=== PATIENT | female | born 1945 | race Asian ===

== ENCOUNTER 2017-03-11 06:30 | Inpatient (IN) | payer MEDICARE ==
[~2017-03-11] VITALS: Ht 160 cm; Wt 68.0 kg
[~2017-03-11 06:30] MED LIST: GLIP10TA3 PO; HALO1TAB21 PO; LISI30TA6 PO; METF850T PO; PRAV80TA PO
--- NOTE | 2017-03-11 06:30 | NUR ---
PT. ESPINO TO ER BED 1
[2017-03-11 06:35] VITALS: BP 173/70
--- NOTE | 2017-03-11 06:44 | NUR ---
71 Y/O F BIBA FROM HOME W/C/O GENERALIZED WAEKNESS X 1 DAY. HX. DM, HTN. BS 389 ON SCENE. BP ELEVATED, DENIES ANY CHEST PAIN. ER MD LAZARO BRASHER.
--- NOTE | 2017-03-11 07:17 | NUR ---
Pt report given to KRISTINA WORKMAN. Transfer of care at this time.
--- NOTE | 2017-03-11 07:18 | NUR ---
RECEIVED REPORT FROM KRISTINA TERRELL. Patient appears to be resting comfortably in bed. BP 175/76 ; DENIES HEADACHE AT THIS TIME. AT BEDSIDE. WILL CONTINUE TO MONITOR.
--- NOTE | 2017-03-11 07:32 | NUR ---
Patient being evaluated by DR WILKERSON at bedside.
[2017-03-11] MEDS ORDERED: NACL 0.9% 1,000 ML IV SCH (07:35)
--- NOTE | 2017-03-11 07:42 | NUR ---
LAB AT BEDSIDE
--- NOTE | 2017-03-11 08:00 | NUR ---
Charles ball in ED - 03/11/17 at 0928 by MED1 STRAIT CATH URINE 800 CC YELLOW.
--- NOTE | 2017-03-11 08:00 | NUR ---
STRAIT CATH URINE 800 CC YELLOW.
[2017-03-11 08:04] LABS: BASOPHILS # (AUTO) 0.1 K/uL (0.00-0.22); BASOPHILS % (AUTO) 0.6 % (0.0-2.0); EOSINOPHILS % (AUTO) 0.2 % (0.0-4.0); HEMATOCRIT 33.6 % (36-48); LYMPHOCYTES # (AUTO) 0.4 K/uL (2.5-16.5); MEAN CORPUSCULAR HEMOGLOBIN 29 pg (27-31); MEAN CORPUSCULAR HGB CONC 33 g/dL (33-37); MEAN CORPUSCULAR VOLUME 89 fL (80-94); MONOCYTES # (AUTO) 0.2 K/uL (0.8-1.0); MONOCYTES % (AUTO) 2.2 % (1.7-9.3); NEUTROPHILS # (AUTO) 7.7 K/uL (1.8-7.7); PLATELET COUNT (AUTO) 263 K/uL (140-450); RED BLOOD CELL COUNT(AUTO) 3.78 MIL/uL (4.20-5.40); RED CELL DISTRIBUTION WIDTH 14.6 % (11.6-13.7)
[2017-03-11 08:17] LABS: WHITE BLOOD COUNT (AUTO) 8.4 K/uL (4.8-10.8)
[2017-03-11 08:20] LABS: PROTHROMBIN TIME 10.9 secs (10.8-13.4)
[2017-03-11 08:59] LABS: ANION GAP 12.5 (8-16); CREATININE 1.1 mg/dL (0.6-1.3); POTASSIUM 3.5 mmol/L (3.5-5.1); TOTAL BILIRUBIN 0.4 mg/dL (0.0-1.0)
[2017-03-11 10:22] LABS: APPEARANCE,URINE CLEAR (CLEAR); BILIRUBIN,URINE NEGATIVE (NEGATIVE); BLOOD, URINE 2+ (NEGATIVE); COLOR,URINE YELLOW (YELLOW); LEUKOCYTE ESTERASE ,URINE NEGATIVE (NEGATIVE); NITRITE, URINE NEGATIVE (NEGATIVE); UGLUCOSE 3+ (NEGATIVE)
[2017-03-11 10:28] LABS: RBC,URINE 11-20 (MOD) /HPF (0-5); WBC,URINE 0-5 (RARE) /HPF (0-5)
--- NOTE | 2017-03-11 11:17 | NUR ---
Patient appears to be resting comfortably in bed. BP 154/69, PULSE OX 96%, Respirations even and unlabored.WILL CONTINUE TO MONITOR.
--- NOTE | 2017-03-11 11:17 | NUR ---
Charles ball in EDM - 03/11/17 at 1119 by MED1 Patient appears to be resting comfortably in bed. Vital Signs within normal limits. Respirations even and unlabored.WILL CONTINUE TO MONITOR.
[2017-03-11] MEDS: NACL 0.9% 1,000 ML IV SCH ×2 (11:18→21:18)
[2017-03-11] MEDS ORDERED: HYDROcodone/APAP 7.5/325 MG 1 TAB PO PRN (11:20)
[2017-03-11] MEDS ORDERED: DOCUSATE SODIUM 100 MG GELCAP PO PRN (11:20)
--- NOTE | 2017-03-11 11:27 | NUR ---
PT TAKEN TO CT VIA GUJESSICA ,ACCOMPANIED BY AD TRAFFICKER.
--- NOTE | 2017-03-11 11:45 | NUR ---
PT BACK FROM CT VIA AISHWARYA ,ACCOMPANIED BY DERRICK BOAT CAPTAIN.
--- NOTE | 2017-03-11 11:54 | NUR ---
PT ARRIVED ON THE UNIT WITH 2 ER NURSES. RECEIVED REPORT AT BEDSIDE. PT IS ALERT AND ORIENTED. SLIGHTLY DELAYED IN RESPONSE. INTRODUCED MYSELF AND UPDATED THE BOARD. PT'S SPOUSE AND 2 DAUGHTERS AT BEDSIDE. SKIN INTACT. NO SIGNS OF SOB OR RESPIRATORY DISTRESS. OCCASIONAL DRY COUGH, NO PHLEGM NOTED. IV ON L FA 20G. NO EDEMA NOTED. V/S WITHIN NORMAL LIMITS. BP HIGH AND FEBRILE 101.8F. NO COMPLAINTS OF PAIN. HUNGRY. AWAITING LUNCH TRAY-CCHO. PER DAUGHTER, PT HAD UNSTEADY GAIT YESTERDAY BUT TODAY, UNABLE TO AMBULATE. WILL AWAIT MD ASSESSMENT AND ORDERS.
[2017-03-11 12:00] VITALS: BP 182/75
--- NOTE | 2017-03-11 12:00 | NUR ---
MRSA SCREENING DONE BY NEERU. WILL SEND TO LAB.
--- NOTE | 2017-03-11 12:01 | NUR ---
Patient will be admitted to care of DR RAMOS. Admited to TELE. Will go to room 124B. Belongings list completed. Report to KRISTINA FANG.
--- NOTE | 2017-03-11 12:49 | NUR ---
ORDERED IVF. ADMINISTERED AND ALSO GAVE TYLENOL FOR FEVER. WILL CONTINUE TO MONITOR PT.
[2017-03-11 13:00] LABS: CHOL/HDL RATIO 2.8 (1-4.5); FREE T4 (FREE THYROXINE) 1.22 ng/dL (0.76-1.46); MAGNESIUM 1.4 mg/dL (1.8-2.4); PHOSPHORUS 2.9 mg/dL (2.5-4.9); THYROID STIMULATING HORMONE 0.76 uIU/mL (0.34-3.74)
[2017-03-11] MEDS: ACETAMINOPHEN 325 MG TAB PO PRN ×2 (13:01→17:39)
[2017-03-11] MEDS ORDERED: ASPI81CT89 PO (14:07)
[2017-03-11] MEDS ORDERED: RISP0.5T3 PO (14:07)
[2017-03-11] MEDS ORDERED: METO100T14 PO (14:07)
[2017-03-11] MEDS ORDERED: LOSA50TA39 PO (14:07)
[2017-03-11] MEDS ORDERED: DEXTROSE 50% 50 ML SYR IVP PRN (14:30)
--- NOTE | 2017-03-11 15:17 | NUR ---
PATIENT IS SLEEPING COMFORTABLY. NO SIGNS OF DISTRESS NOTED. SAFETY PRECAUTIONS IN PLACE. CALL LIGHT WITHIN REACH. WILL CONTINUE TO MONITOR PATIENT.
[2017-03-11 16:00] VITALS: BP 155/75
[2017-03-11] MEDS: metFORMIN 850 MG TAB PO SCH (16:52)
[2017-03-11] MEDS: glipiZIDE 10 MG TAB PO SCH (16:52)
[2017-03-11] MEDS: BLOOD GLUCOSE MONITORING 1 DEV DEV FS SCH ×2 (16:54→20:57)
--- NOTE | 2017-03-11 17:13 | NUR ---
PT V/S IS IMPROVING. BP SLOWLY COMING DOWN. BS ON A DOWN TREND. O2 SAT IN LOW 90'S. O2 2L VIA NC ADMINISTERED. ELEVATED THE HEAD. WILL CONTINUE TO MONITOR PT.
--- NOTE | 2017-03-11 17:28 | NUR ---
PT VOMITED. WILL CLEAN PT UP AND ADMINISTER ZOFRAN. WILL CONTINUE TO MONITOR PT.
[2017-03-11] MEDS: ONDANSETRON 4 MG/2 ML VIAL IM/IVP PRN (17:39)
[2017-03-11] MEDS: INSULIN LISPRO SLIDING SCALE 100 UNITS/ML VIAL SUBQ PRN (17:43)
--- NOTE | 2017-03-11 17:51 | NUR ---
ADMINISTERED ZOFRAN FOR NAUSEA AND TYLENOL FOR FEVER. PT TOLERATED WELL. COOLING MEASURES IMPLEMENTED. FAMILY IS HERE. WILL CONTINUE TO MONITOR PT.
[2017-03-11] MEDS ORDERED: MAG SULF 2000 MG/WATER PREMIX 100 ML IV ONE (18:15)
--- NOTE | 2017-03-11 19:00 | NUR ---
RADIOLOGY HERE FOR US OF KIDNEYS, ABD, AND CAROTID.
--- NOTE | 2017-03-11 19:10 | NUR ---
ENDORSED PT TO THE COLLOID MILL OPERATOR NURSE AT BEDSIDE FOR CONTINUITY OF CARE. PT IS IN STABLE CONDITION.
--- NOTE | 2017-03-11 19:20 | NUR ---
RECEIVED REPORT FROM AM NURSE. PT RESTING IN BED, AWAKE AND ALERT, DELAYED SPEECH, ABLE TO VERBALIZE NEEDS, PT REPORTS GENERALIZED WEAKNESS, BEDREST. MANAGER DRIVE IN PLACE. PT DENIES CHEST PAIN, SOB OR S/S OF ACUTE DISTRESS. SPO2 98% ON O2 2L NC, RR 20 EVEN AND UNLABORED. TEMP 99.6, COOLING MEASURES MAINTAINED. IV ACCESS ASYMPTOMATIC, PATENT AND INTACT. IVF INFUSING WELL. DISCUSSED AND REVIEWED PLAN OF CARE WITH PT. PT VERBALIZED UNDERSTANDING. ALL NEEDS MET. SAFETY MEASURES ENSURED. CALL LIGHT WITHIN REACH. WILL CONTINUE TO MONITOR.
[2017-03-11 20:00] VITALS: BP 148/68
[2017-03-11] MEDS: SIMVASTATIN 40 MG TAB PO SCH (20:56)
[2017-03-11] MEDS: risperiDONE 1 MG TAB PO SCH (20:56)
--- NOTE | 2017-03-11 20:59 | NUR ---
BLOOD GLUCOSE 146, NO INSULIN COVERAGE NEEDED, EVENING SNACK PROVIDED. ADMINISTERED DUE MEDS WITH EDUCATION. PT VERBALIZED UNDERSTANDING, TOLERATED MEDS WELL. PT HAD BM, ASSISTED PT TO BEDPAN, PT CLEANED BY LAST SAWYER, PT ABLE TO TOLERATE WELL. ALL NEEDS MET. IVF INFUSING WELL. SAFETY MEASURES ENSURED. CALL LIGHT WITHIN REACH. WILL CONTINUE TO MONITOR.
[2017-03-11] MEDS ORDERED: LACTULOSE 20 GM/30 ML UDC PO SCH (21:30)
--- NOTE | 2017-03-11 23:54 | NUR ---
PT SLEEPING COMFORTABLY, AROUSABLE TO NAME, NO S/S OF ACUTE DISTRESS. ALL NEEDS MET. SAFETY MEASURES ENSURED. CALL LIGHT WITHIN REACH. WILL CONTINUE TO MONITOR.
[2017-03-12] VITALS (7 sets, daily range): BP systolic 136–186; BP diastolic 66–85
--- NOTE | 2017-03-12 | NUR ---
PT HAD LARGE LOOSE BM, PT CLEANED, TURNED AND REPOSITIONED WITH CNAs. PT TOLERATED WELL. ALL NEEDS MET. IVF INFUSING WELL. SAFETY MEASURES ENSURED. CALL LIGHT WITHIN REACH. WILL CONTINUE TO MONITOR.
[2017-03-12] MEDS: NACL 0.9% 1,000 ML IV SCH ×3 (02:04→14:14)
--- NOTE | 2017-03-12 02:06 | NUR ---
PT HAD ANOTHER LARGE LOOSE BM, PT CLEANED, TURNED AND REPOSITIONED WITH CNAs. PT TOLERATED WELL. ALL NEEDS MET. IVF INFUSING WELL. SAFETY MEASURES ENSURED. CALL LIGHT WITHIN REACH. WILL CONTINUE TO MONITOR.
[2017-03-12] MEDS: hydrALAZINE 20 MG/ML VIAL IVP PRN (04:14)
[2017-03-12] MEDS: ACETAMINOPHEN 325 MG TAB PO PRN ×2 (04:14→16:53)
--- NOTE | 2017-03-12 04:15 | NUR ---
CALLED DR WEINSTEIN, MADE AWARE OF ELEVATED BP AT THIS TIME, 186/85, 167/87 AND 163/97; ORDERS RECEIVED, WILL CARRY OUT. ADMINISTERED HYDRALAZINE 5MG IVP PRN ORDERED. TEMP 100.4, ADMINISTERED TYLENOL PO PRN ORDERED. PT HAD MODERATE LOOSE BM, PT CLEANED, TURNED AND REPOSITIONED, OFFLOADED PRESSURE AREAS. PT TOLERATED WELL. ALL NEEDS MET. IVF INFUSING WELL. SAFETY MEASURES ENSURED. CALL LIGHT WITHIN REACH. WILL CONTINUE TO MONITOR.
[2017-03-12 06:16] LABS: T4 (THYROXINE) 7.1 ug/dL (4.5-12.0)
[2017-03-12] MEDS: BLOOD GLUCOSE MONITORING 1 DEV DEV FS SCH ×4 (06:30→21:00)
[2017-03-12] MEDS: glipiZIDE 10 MG TAB PO SCH ×2 (06:30→16:40)
[2017-03-12] MEDS: INSULIN LISPRO SLIDING SCALE 100 UNITS/ML VIAL SUBQ PRN ×2 (06:31→12:37)
--- NOTE | 2017-03-12 07:15 | NUR ---
ENDORSED PLAN OF CARE TO AM NURSE. CONDITION STABLE
--- NOTE | 2017-03-12 07:16 | NUR ---
RECEIVED REPORT FROM TERMITE CONTROL TECHNICIAN RN AT BEDSIDE FOR CONTINUITY OF CARE. PT IS ALERT AND ORIENTED. SLIGHTLY DELAYED IN RESPONSE. SKIN INTACT. NO SIGNS OF SOB OR RESPIRATORY DISTRESS. OCCASIONAL DRY COUGH, NO PHLEGM NOTED. IV ON L FA 20G WITH NS AT 100 ML/HR. NO COMPLAINTS OF PAIN. SAFETY PRECAUTIONS IN PLACE. BED ON LOWEST SETTING, CALL LIGHT WITHIN REACH. WILL CONTINUE TO MONITOR PATIENT.
[2017-03-12 08:04] LABS: HEMATOCRIT 33.3 % (36-48); HEMOGLOBIN 11.3 g/dL (12.0-16.0); MEAN CORPUSCULAR HEMOGLOBIN 31 pg (27-31); MEAN CORPUSCULAR HGB CONC 34 g/dL (33-37); MEAN CORPUSCULAR VOLUME 90 fL (80-94); PLATELET COUNT (AUTO) 231 K/uL (140-450); RED BLOOD CELL COUNT(AUTO) 3.69 MIL/uL (4.20-5.40); RED CELL DISTRIBUTION WIDTH 15.2 % (11.6-13.7); WHITE BLOOD COUNT (AUTO) 7.4 K/uL (4.8-10.8)
[2017-03-12 08:29] LABS: ANION GAP 13.1 (8-16); CREATININE 0.8 mg/dL (0.6-1.3); POTASSIUM 3.1 mmol/L (3.5-5.1)
[2017-03-12] MEDS ORDERED: PRAVASTATIN SODIUM 80 MG PO SCH (09:00)
[2017-03-12] MEDS: metFORMIN 850 MG TAB PO SCH ×3 (09:25→16:39)
[2017-03-12] MEDS: LOSARTAN 50 MG TAB PO SCH (09:32)
[2017-03-12] MEDS: LISINOPRIL 10 MG TAB PO SCH (09:32)
[2017-03-12] MEDS: ASPIRIN 81 MG TAB.CHEW PO SCH (09:32)
[2017-03-12] MEDS: METOPROLOL SUCCINATE 50 MG TABER PO SCH (09:32)
--- NOTE | 2017-03-12 10:04 | NUR ---
PATIENT HAS BEEN SCREENED AND CATEGORIZED HIGH NUTRITION RISK. PATIENT WILL BE SEEN WITHIN 1-2 DAYS OF ADMISSION. 03/11/17-03/12/[address]
[2017-03-12 10:22] LABS: LYMPHOCYTES % (MANUAL) 10 % (20-46); MONOCYTES % (MANUAL) 7 % (5-12)
--- NOTE | 2017-03-12 14:51 | NUR ---
03/12/17 RD INITIAL ASSESSMENT COMPLETED PLEASE REFER TO NUTRITION ASSESSMENT UNDER CARE ACTIVITY FOR ESTIMATED NUTRITIONAL NEEDS. 1.CONTINUE CURRENT DIET TOLERATED, PT TO CONSUME >75% EST. KCAL & PRO WITHIN 3-5 DAYS 2.RD TO FOLLOW-UP IN 3-5 DAYS, MODERATE RISK SYLVIA GONZALES, RD
--- NOTE | 2017-03-12 15:04 | NUR ---
PATIENT SITTING UP IN BED, WATCHING TV. NO SIGNS OF DISTRESS NOTED. SAFETY PRECAUTIONS IN PLACE. WILL CONTINUE TO MONITOR PATIENT.
--- NOTE | 2017-03-12 15:29 | NUR ---
CM NOTE INITIAL REVIEW FAXED TO [facility] / FAX# [phone], ATTN: GEN #[phone]
--- NOTE | 2017-03-12 16:43 | NUR ---
PATIENT'S TEMPERATURE 102.5. TYLENOL GIVEN PRN. NO SIGNS OF DISTRESS NOTED. FAMILY AT BEDSIDE. SAFETY PRECAUTIONS IN PLACE. WILL CONTINUE TO MONITOR PATIENT.
--- NOTE | 2017-03-12 17:30 | NUR ---
PATIENT'S TEMPERATURE 100.2. NO SIGNS OF DISTRESS NOTED. SAFETY PRECAUTIONS IN PLACE. WILL CONTINUE TO MONITOR PATIENT.
--- NOTE | 2017-03-12 18:05 | NUR ---
PATIENT'S BP 139/51 T 99.5. PATIENT SITTING UP IN BED EATING DINNER. SAFETY PRECAUTIONS IN PLACE. WILL CONTINUE TO MONITOR PATIENT.
[2017-03-12] MEDS: ONDANSETRON 4 MG/2 ML VIAL IM/IVP PRN (18:16)
--- NOTE | 2017-03-12 18:16 | NUR ---
PATIENT VOMITTED. ZOFRAN PRN IVP ADMINISTERED ORDERED. LINENS AND BED GOWN CHANGED. PATIENT DENIES PAIN. SAFETY PRECAUTIONS IN PLACE. WILL CONTINUE TO MONITOR PATIENT.
--- NOTE | 2017-03-12 19:30 | NUR ---
RECEIVED PT FROM ANNALISA RN PT IS AAOX3 DELAYED SPEECH ON TELE SR, IV ON LEFT ARM INFUSING WELL AT THISTIME MG RIDDER IS INFUSING PT REPOSITIONED INITIAL ASSESSMENT DONE
--- NOTE | 2017-03-12 19:30 | NUR ---
REPORT GIVEN TO MATERIALS INSPECTOR NURSE AT BEDSIDE FOR CONTINUITY OF CARE. PATIENT IN STABLE CONDITION.
[2017-03-12] MEDS ORDERED: POTASSIUM CHLORIDE 20 MEQ, LIDOCAINE 1% 25 MG in NACL 0.9% 250 ML IV SCH (20:00)
--- NOTE | 2017-03-12 20:00 | NUR ---
PT LINEN CHANGED GREENISH LIQUID STOOL
[2017-03-12] MEDS: risperiDONE 1 MG TAB PO SCH (21:00)
--- NOTE | 2017-03-12 21:30 | NUR ---
BLOOD SUGAR TEST 130 REPOSITIONED Q2HNOT DISTRESS NOTED
--- NOTE | 2017-03-12 22:00 | NUR ---
PT HAS BEEN CLEANING FOR LIQUID STOOL VERY OFTEN PT ON LACTULOSE, SR ON TELEMETRY REPOSITIONED Q2H
[2017-03-12] MEDS: SIMVASTATIN 40 MG TAB PO SCH (22:07)
[2017-03-13] VITALS: BP 152/73
[2017-03-13] MEDS ORDERED: MAG SULF 2000 MG/WATER PREMIX 50 ML IV SCH
--- NOTE | 2017-03-13 01:00 | NUR ---
SPONGE BATH GIVEN LINEN CHANGED ON TELE SR REPOSITIONED Q2H IV INFUSING WELL ON LEFT ARM
[2017-03-13] MEDS: NACL 0.9% 1,000 ML IV SCH ×3 (03:18→22:02)
[2017-03-13 04:00] VITALS: BP 140/73
--- NOTE | 2017-03-13 04:00 | NUR ---
SPONGE BATH GIVEN AGAIN LINEN CHANGED NOT DISTRESS NOTED ON TELE SR
[2017-03-13] MEDS: BLOOD GLUCOSE MONITORING 1 DEV DEV FS SCH ×4 (06:02→21:57)
--- NOTE | 2017-03-13 06:02 | NUR ---
BLOOD SUGAR TEST 233 WILL BE COVER PROTOCOL
[2017-03-13] MEDS: INSULIN LISPRO SLIDING SCALE 100 UNITS/ML VIAL SUBQ PRN ×4 (06:16→22:04)
[2017-03-13] MEDS: glipiZIDE 10 MG TAB PO SCH ×2 (06:20→17:06)
--- NOTE | 2017-03-13 06:28 | NUR ---
LINEN CHANGED , PT O HAS A GREENISH LIQUID STOOL PT ON LACTULOSE
--- NOTE | 2017-03-13 07:11 | NUR ---
ASSUMED CONTINUITY OF CARE. NO SIGNS AND SYMPTOMS OF ACUTE DISTRESS NOTICED. INITIAL ASSESSMENT DONE. RE-ORIENTED TO EVENTS AND SURROUNDINGS. KEEP COMFORTABLE ON BED. FALL PRECAUTION APPLIED. CALL LIGHT WITHIN REACH.
[2017-03-13 08:00] VITALS: BP 158/76
--- NOTE | 2017-03-13 08:00 | NUR ---
Patient's Plan of Care was discussed and reviewed with WEAVER DOBBY LOOM: BOBBY
[2017-03-13] MEDS: ASPIRIN 81 MG TAB.CHEW PO SCH (08:29)
[2017-03-13] MEDS: metFORMIN 850 MG TAB PO SCH ×3 (08:29→17:06)
[2017-03-13] MEDS: METOPROLOL SUCCINATE 50 MG TABER PO SCH (08:30)
[2017-03-13] MEDS: LISINOPRIL 10 MG TAB PO SCH (08:30)
[2017-03-13] MEDS: LOSARTAN 50 MG TAB PO SCH (08:30)
--- NOTE | 2017-03-13 10:01 | NUR ---
DR. JAIN CAME AND SPOKE TO PT., AND PT. DAUGHTER AT BEDSIDE.
--- NOTE | 2017-03-13 10:01 | NUR ---
DR. JAIN CAME AND SPOKE TO PT., PT., , AND PT. DAUGHTER.
[2017-03-13 12:00] VITALS: BP 155/77
--- NOTE | 2017-03-13 14:01 | NUR ---
PAGED ST -CRISETTE REGARDING PT. SWALLOW EVAL. LEFT CALL BACK NUMBER.
--- NOTE | 2017-03-13 14:03 | NUR ---
MYA CALLED BACK, INFORMED MD ORDER OF PTOmari SERVIN. PER MYA ST WILL COME BETWEEN 1630 TO [address] INFORMED [address] JAIN REGARDING ST WILL COME BETWEEN 1630 TO 1700.
--- NOTE | 2017-03-13 14:08 | NUR ---
FAXED CONCURRENT REVIEW TO [facility] [phone] PHONE [phone],GEN
--- NOTE | 2017-03-13 14:20 | NUR ---
SPOKE WITH GEN FROM [facility] . THE ROLLING WALKER WITH BE DELIVERED HERE. TO COME FROM [place]. AUTH [id number] IF PATIENT NEEDS HOME HEALTH FOR PT,. USE [facility], [phone] AUTH [id number].
[2017-03-13 16:00] VITALS: BP 160/69
--- NOTE | 2017-03-13 17:34 | NUR ---
* ST NOTE * Pt seen at bedside w/ present. Pt consenting to evaluation w/ present. Pt alert, cooperative and engaged throughout session, reporting no c/o pain at this time. Bedside dysphagia and oral mechanism exams completed. See evaluation report for further details. Pt tolerating 8/8 alternating PO trials of regular solid saltine crackers as well as 7/7 alternating PO trials of successive sips of thin liquid apple juice via a straw, all w/o s/s of aspiration. Pt and caregiver/ education completed regarding safe swallow compensatory strategies pt and caregivers/family/staff could utilize to aid pt w/swallow function, w/pt and caregiver/ verbalizing understanding and agreement. Pt presenting with minimal residue on lingua after PO intake of regular solid saltine crackers. Thus it is recommended pt's PO diet consistency be modified to mechancial soft textures w/thin liquids for all meals, w/pt agreeable w/clinician's recommendations. Pt, caregiver/ and caregiver/nsg education completed regarding results of evaluation, benefits of abiding by aspiration precautions and recommended PO diet consistency; and prognosis for improvement; with pt, caregiver/ and caregiver/nsg verbalizing understanding and agreement w/clinician's recommendations. Recommend: - PO diet consistency of MECHANICAL SOFT TEXTURES W/THIN LIQUIDS for all meals - Maintain STRICT ASPIRATION PRECAUTIONS 2/2 to pt's hx of difficulty swallowing and hx of ALOC - Remind/Cue pt prior to and during meals to eat slowly, alternating between solids & liquids and to use small bites/sips - Assess pt for possible appetite stimulant as per MD's approval 2/2 pt and caregiver/ reporting poor PO intake No further ST follow up recommended at this time. G8996 CJ G8997 CI G8998 CI NOMS Level 2 Time In/Out 16:45 - 17:15
--- NOTE | 2017-03-13 17:56 | NUR ---
INFORMED DR. GUZMAN REGARDING ST DIET RECOMMENDATION.
[2017-03-13 18:11] LABS: ANION GAP 8.9 (8-16); CARBON DIOXIDE 24.7 mmol/L (21-32); CREATININE 0.8 mg/dL (0.6-1.3); POTASSIUM 3.6 mmol/L (3.5-5.1)
--- NOTE | 2017-03-13 19:20 | NUR ---
BEDSIDE REPORT GIVEN TO DILIP SEO -KRISTINA. IVF INFUSING WELL. IN STABLE CONDITION.
--- NOTE | 2017-03-13 19:21 | NUR ---
RECEIVED REPORT FROM DAY NURSE BOBBY ACEVEDO. PT IN STABLE CONDITION. NO S/S OF DISTRESS NOTED. PT IS AAOX3, ON 2L 02 VIA NC. SKIN IS INTACT. RESPIRATIONS ARE EVEN AND UNLABORED. SKIN IS WARM AND DRY TO TOUCH.L FA 20G IV PATENT AND INTACT. INITIAL ASSESSMENT COMPLETED. PLAN OF CARE DISCUSSED WITH PT, VERBALIZED UNDERSENSING. ALL SAFETY PRECAUTIONS MET, CALL LIGHT WITHIN REACH, WILL CONTINUE TO MONITOR.
[2017-03-13 20:00] VITALS: BP 155/70
--- NOTE | 2017-03-13 20:18 | NUR ---
PT GIVEN THE BEDPAN, PT HAD URINE CLEAR AND YELLOW
[2017-03-13] MEDS: risperiDONE 1 MG TAB PO SCH (21:54)
[2017-03-13] MEDS: SIMVASTATIN 40 MG TAB PO SCH (21:54)
--- NOTE | 2017-03-13 23:30 | NUR ---
PT GIVEN THE BADPAN. PT HAD URINE AND SMALL BM, DARK BROWN AND NOT FORMED
[2017-03-14] VITALS (7 sets, daily range): BP systolic 129–163; BP diastolic 58–74
--- NOTE | 2017-03-14 01:00 | NUR ---
PT GIVEN THE BEDPAN, PT HAD URINE YELLOW AND CLEAR
--- NOTE | 2017-03-14 03:00 | NUR ---
PT GIVEN BEDPAN HAD BM, DARK BROWN LIQUIDLY STOOL
[2017-03-14] MEDS: INSULIN LISPRO SLIDING SCALE 100 UNITS/ML VIAL SUBQ PRN ×4 (06:27→21:17)
[2017-03-14] MEDS: BLOOD GLUCOSE MONITORING 1 DEV DEV FS SCH ×4 (06:31→21:27)
[2017-03-14] MEDS: glipiZIDE 10 MG TAB PO SCH ×2 (06:34→16:17)
--- NOTE | 2017-03-14 07:20 | NUR ---
RECEIVED PATIENT REPORT AT BEDSIDE. PATIENT ASLEEP BUT AROUSABLE. NO S/S OF DISTRESS NOTED. PATIENT ON ROOM AIR. NO C/O PAIN AT THIS TIME. IV LINE NOTED TO THE LEFT FOREARM WITH IVF INFUSING WELL. PATIENT ON TELE MONITORING. BED LOWERED WITH CALL LIGHT WITHIN REACH. WILL CONTINUE TO MONITOR
--- NOTE | 2017-03-14 07:33 | NUR ---
GAVE REPORT TO DAY NURSE FOR CONTINUITY OF CARE PT IN STABLE CONDITION, NO S/S OF DISTRESS NOTED
--- NOTE | 2017-03-14 08:00 | NUR ---
PATIENT HAD LOOSE BM. PERINEAL CARE GIVEN
[2017-03-14 08:14] LABS: BASOPHILS % (AUTO) 0.3 % (0.0-2.0); EOSINOPHILS % (AUTO) 0.2 % (0.0-4.0); HEMATOCRIT 34.7 % (36-48); HEMOGLOBIN 11.5 g/dL (12.0-16.0); LYMPHOCYTES # (AUTO) 0.6 K/uL (2.5-16.5); LYMPHOCYTES % (AUTO) 7.2 % (20.5-51.1); MEAN CORPUSCULAR HEMOGLOBIN 30 pg (27-31); MEAN CORPUSCULAR HGB CONC 33 g/dL (33-37); MEAN CORPUSCULAR VOLUME 91 fL (80-94); MONOCYTES # (AUTO) 0.7 K/uL (0.8-1.0); MONOCYTES % (AUTO) 8.3 % (1.7-9.3); NEUTROPHILS # (AUTO) 7.5 K/uL (1.8-7.7); PLATELET COUNT (AUTO) 240 K/uL (140-450); RED BLOOD CELL COUNT(AUTO) 3.83 MIL/uL (4.20-5.40); RED CELL DISTRIBUTION WIDTH 14.8 % (11.6-13.7); WHITE BLOOD COUNT (AUTO) 8.8 K/uL (4.8-10.8)
[2017-03-14 08:17] LABS: ANION GAP 11.8 (8-16); CARBON DIOXIDE 22.8 mmol/L (21-32); CREATININE 0.7 mg/dL (0.6-1.3); POTASSIUM 3.6 mmol/L (3.5-5.1)
[2017-03-14] MEDS: metFORMIN 850 MG TAB PO SCH ×3 (09:54→16:17)
[2017-03-14] MEDS: NACL 0.9% 1,000 ML IV SCH ×2 (09:54→19:18)
[2017-03-14] MEDS: LOSARTAN 50 MG TAB PO SCH (09:54)
[2017-03-14] MEDS: METOPROLOL SUCCINATE 50 MG TABER PO SCH (09:54)
[2017-03-14] MEDS: ASPIRIN 81 MG TAB.CHEW PO SCH (09:54)
[2017-03-14] MEDS: LISINOPRIL 10 MG TAB PO SCH (09:54)
[2017-03-14] MEDS: hydrALAZINE 20 MG/ML VIAL IVP PRN (12:09)
[2017-03-14] MEDS ORDERED: MAG SULF 2000 MG/WATER PREMIX 50 ML IV SCH (13:02)
--- NOTE | 2017-03-14 14:00 | NUR ---
PATIENT SEEN BY DR SWENSON. PATIENT'S DAUGHTER PRESENT IN THE ROOM
--- NOTE | 2017-03-14 16:45 | NUR ---
PATIENT ASLEEP IN BED. NO S/S OF DISTRESS NOTED
--- NOTE | 2017-03-14 19:30 | NUR ---
PATIENT REPORT GIVEN AT BEDSIDE. PATIENT ENDORSED IN STABLE CONDITION
--- NOTE | 2017-03-14 19:31 | NUR ---
RECEIVED PT RESTING IN BED. AAOX3. NO C/O PAIN OR DISCOMFORT NOTED. IV TO LEFT FA #20G WITH NS AT 100 ML/HR. PT ON O2 AT 2 L/MIN VIA NC. DISCUSSED PLAN OF CARE. PT VERBALIZED UNDERSTANDING. SAFETY/FALL PRECAUTION IN PLACE. CALL LIGHT WITHIN REACH. WILL CONTINUE TO MONITOR.
[2017-03-14] MEDS ORDERED: LISINOPRIL 10 MG TAB PO SCH (21:00)
[2017-03-14] MEDS: SIMVASTATIN 40 MG TAB PO SCH (21:21)
[2017-03-14] MEDS: risperiDONE 1 MG TAB PO SCH (21:21)
--- NOTE | 2017-03-14 21:50 | NUR ---
PT LYING COMFORTABLY IN BED. NO DISTRESS NOTED. ALL NEEDS MET AT THIS TIME. CALL LIGHT WITHIN REACH.
[2017-03-15 01:10] VITALS: BP 169/83
[2017-03-15] MEDS: hydrALAZINE 20 MG/ML VIAL IVP PRN ×2 (01:22→05:31)
--- NOTE | 2017-03-15 01:23 | NUR ---
V/S TAKEN. PT'S BP 169/83 HR 74. HYDRALAZINE 5MG IVP GIVEN ORDERED. WILL CONTINUE TO MONITOR. CALL LIGHT WITHIN REACH.
--- NOTE | 2017-03-15 02:24 | NUR ---
V/S TAKEN. BP 150/79 HR 73 O2 97% ON RA TEMP 98.2 RR 18. NO C/O PAIN OR DISCOMFORT NOTED. CALL LIGHT WITHIN REACH.
[2017-03-15 04:00] VITALS: BP 156/80
--- NOTE | 2017-03-15 04:10 | NUR ---
PT AWAKE. V/S TAKEN. NO DISTRESS NOTED. BED GRIFFIN PROVIDED TO PT. ALL NEEDS MET AT THIS TIME. CALL LIGHT WITHIN REACH.
--- NOTE | 2017-03-15 04:30 | NUR ---
PT HAD LOOSE BM. PERINEAL CARE GIVEN. CALL LIGHT WITHIN REACH.
--- NOTE | 2017-03-15 05:00 | NUR ---
DR. ACOSTA CAME IN TO SEE PT. REPORTED LOOSE BM. NO NEW ORDER AT THIS TIME. DR. ACOSTA MADE AWARE OF PT'S BP AT 0110 AND HYDRALAZINE 5MG GIVEN.
[2017-03-15] MEDS: NACL 0.9% 1,000 ML IV SCH ×2 (05:18→15:30)
[2017-03-15] MEDS: BLOOD GLUCOSE MONITORING 1 DEV DEV FS SCH ×4 (06:24→20:29)
[2017-03-15] MEDS: INSULIN LISPRO SLIDING SCALE 100 UNITS/ML VIAL SUBQ PRN ×4 (06:32→20:25)
[2017-03-15] MEDS: glipiZIDE 10 MG TAB PO SCH ×2 (06:33→16:36)
--- NOTE | 2017-03-15 07:05 | NUR ---
ENDORSED PT TO DAY SHIFT NURSE. PT IN STABLE CONDITION.
--- NOTE | 2017-03-15 07:06 | NUR ---
RECEIVED REPORT FROM EKG MANAGER NURSE AT BEDSIDE FOR CONTINUITY OF CARE. PT IN STABLE CONDITION.
[2017-03-15 08:00] VITALS: BP 155/62
[2017-03-15] MEDS: metFORMIN 850 MG TAB PO SCH ×3 (08:00→16:36)
[2017-03-15 08:45] LABS: BASOPHILS # (AUTO) 0.1 K/uL (0.00-0.22); BASOPHILS % (AUTO) 0.5 % (0.0-2.0); EOSINOPHILS % (AUTO) 0.1 % (0.0-4.0); HEMATOCRIT 33.2 % (36-48); HEMOGLOBIN 10.9 g/dL (12.0-16.0); LYMPHOCYTES # (AUTO) 0.5 K/uL (2.5-16.5); MEAN CORPUSCULAR HEMOGLOBIN 29 pg (27-31); MEAN CORPUSCULAR HGB CONC 33 g/dL (33-37); MEAN CORPUSCULAR VOLUME 89 fL (80-94); MONOCYTES # (AUTO) 0.8 K/uL (0.8-1.0); MONOCYTES % (AUTO) 7.3 % (1.7-9.3); NEUTROPHILS % (AUTO) 87.1 % (42.2-75.2); PLATELET COUNT (AUTO) 251 K/uL (140-450); RED BLOOD CELL COUNT(AUTO) 3.73 MIL/uL (4.20-5.40); RED CELL DISTRIBUTION WIDTH 14.9 % (11.6-13.7); WHITE BLOOD COUNT (AUTO) 10.4 K/uL (4.8-10.8)
[2017-03-15] MEDS: METOPROLOL SUCCINATE 50 MG TABER PO SCH (09:07)
[2017-03-15] MEDS: ASPIRIN 325 MG TAB PO SCH (09:07)
[2017-03-15] MEDS: LOSARTAN 50 MG TAB PO SCH (09:07)
[2017-03-15] MEDS: LISINOPRIL 10 MG TAB PO SCH (09:07)
[2017-03-15] MEDS: PIOGLITAZONE 30 MG TAB PO SCH (09:07)
[2017-03-15 09:35] LABS: MAGNESIUM 1.5 mg/dL (1.8-2.4); PHOSPHORUS 2.2 mg/dL (2.5-4.9)
[2017-03-15 09:40] LABS: ANION GAP 16.1 (8-16); CARBON DIOXIDE 18.3 mmol/L (21-32); CREATININE 0.6 mg/dL (0.6-1.3); POTASSIUM 3.4 mmol/L (3.5-5.1)
[2017-03-15 12:00] VITALS: BP 130/69
--- NOTE | 2017-03-15 13:00 | NUR ---
PT'S AT BEDSIDE. PT STATED SHE DID NOT LIKE FOOD. REQUESTED SOUP AND JELL-O FOR DINNER. CALLED [facility] FOR REQUEST. PT HAD NON-PRODUCTIVE COUGH. REPORTED TO MD FOR COUGH MED. PT IN NO SIGNS OF DISTRESS. WILL CONTINUE TO MONITOR.
[2017-03-15] MEDS ORDERED: MAG SULF 2000 MG/WATER PREMIX 50 ML IV SCH (14:00)
[2017-03-15] MEDS ORDERED: POTASSIUM CHLORIDE 10 MEQ TABER PO SCH (14:00)
[2017-03-15 16:00] VITALS: BP 163/63
[2017-03-15] MEDS ORDERED: amLODIPine 5 MG TAB PO SCH (16:00)
[2017-03-15] MEDS ORDERED: guaiFENesin 600 MG TABER PO SCH (16:00)
[2017-03-15] MEDS: SODIUM PHOS / POTASSIUM PHOS 1 PKT PDR PO SCH (16:36)
--- NOTE | 2017-03-15 17:54 | NUR ---
PT GOT UP OUT OF BED TO USE BEDSIDE COMMODE. UP WITH STEADY GAIT. WILL CONTINUE TO MONITOR.
--- NOTE | 2017-03-15 19:42 | NUR ---
ENDORSED PT TO DOUBLE END TENONER SETTER NURSE AT BEDSIDE FOR CONTINUITY OF CARE. PT IN STABLE CONDITION.
--- NOTE | 2017-03-15 19:43 | NUR ---
RECEIVED REPORT FROM DAY SHIFT NURSE. PT LYING IN BED, NO C/O PAIN OR DISCOMFORT NOTED. IV TO LEFT FA #20G WITH NS AT 100 ML/HR. . DISCUSSED PLAN OF CARE. PT VERBALIZED UNDERSTANDING. SAFETY/FALL PRECAUTION IN PLACE. CALL LIGHT WITHIN REACH. WILL CONTINUE TO MONITOR.
[2017-03-15 20:00] VITALS: BP 158/65
[2017-03-15] MEDS: risperiDONE 1 MG TAB PO SCH (20:29)
[2017-03-15] MEDS ORDERED: ATORVASTATIN 20 MG TAB PO SCH (21:00)
[2017-03-15] MEDS ORDERED: INSULIN DETEMIR 100 UNITS/ML 10 ML VIAL SUBQ SCH ×2 (21:00)
--- NOTE | 2017-03-15 23:15 | NUR ---
PT STATED SHE WANTED TO URINATE BUT DIDN'T WANT TO GO TO BEDSIDE COMMODE. BED GRIFFIN OFFERED. NO C/O PAIN. CALL LIGHT WITHIN REACH.
[2017-03-16] VITALS: BP 147/67
[2017-03-16] MEDS: NACL 0.9% 1,000 ML IV SCH (01:06)
--- NOTE | 2017-03-16 02:36 | NUR ---
PT SLEEPING. NO S/S OF RESP DISTRESS. CALL LIGHT WITHIN REACH.
[2017-03-16 04:00] VITALS: BP 152/68
--- NOTE | 2017-03-16 04:45 | NUR ---
ASSISTED PT TO BEDSIDE COMMODE. NO C/O PAIN OR DISCOMFORT. CALL LIGHT WITHIN REACH.
[2017-03-16] MEDS: INSULIN LISPRO SLIDING SCALE 100 UNITS/ML VIAL SUBQ PRN (06:25)
[2017-03-16] MEDS: BLOOD GLUCOSE MONITORING 1 DEV DEV FS SCH (06:27)
[2017-03-16] MEDS: glipiZIDE 10 MG TAB PO SCH (06:28)
--- NOTE | 2017-03-16 07:15 | NUR ---
ENDORSED PT TO DAY SHIFT NURSE. PT IN STABLE CONDITION.
--- NOTE | 2017-03-16 07:16 | NUR ---
RECEIVED REPORT FROM BOOK AUTHOR NURSE SANJAY AT BEDSIDE FOR CONTINUITY OF CARE. PT IS AWAKE AND ORIENTED. INTRODUCED SELF AND UPDATED BOARD. PT HAS NO COMPLAINTS AT THIS TIME. WILL CONTINUE TO MONITOR.
[2017-03-16 07:22] LABS: ANION GAP 10.2 (8-16); CARBON DIOXIDE 22.6 mmol/L (21-32); CREATININE 0.6 mg/dL (0.6-1.3); POTASSIUM 3.8 mmol/L (3.5-5.1)
[2017-03-16 07:25] LABS: BASOPHILS % (AUTO) 0.3 % (0.0-2.0); EOSINOPHILS % (AUTO) 0.1 % (0.0-4.0); HEMATOCRIT 30.4 % (36-48); HEMOGLOBIN 9.9 g/dL (12.0-16.0); LYMPHOCYTES % (AUTO) 7.3 % (20.5-51.1); MEAN CORPUSCULAR HEMOGLOBIN 29 pg (27-31); MEAN CORPUSCULAR HGB CONC 33 g/dL (33-37); MEAN CORPUSCULAR VOLUME 90 fL (80-94); MONOCYTES # (AUTO) 1.2 K/uL (0.8-1.0); MONOCYTES % (AUTO) 8.9 % (1.7-9.3); NEUTROPHILS # (AUTO) 11.8 K/uL (1.8-7.7); NEUTROPHILS % (AUTO) 83.4 % (42.2-75.2); PLATELET COUNT (AUTO) 279 K/uL (140-450); RED BLOOD CELL COUNT(AUTO) 3.39 MIL/uL (4.20-5.40); RED CELL DISTRIBUTION WIDTH 15.1 % (11.6-13.7); WHITE BLOOD COUNT (AUTO) 13.9 K/uL (4.8-10.8)
[2017-03-16 07:32] LABS: MAGNESIUM 1.7 mg/dL (1.8-2.4); PHOSPHORUS 1.9 mg/dL (2.5-4.9)
[2017-03-16 08:00] VITALS: BP 160/66
[2017-03-16] MEDS: SODIUM PHOS / POTASSIUM PHOS 1 PKT PDR PO SCH (08:40)
[2017-03-16] MEDS: LISINOPRIL 10 MG TAB PO SCH (08:45)
[2017-03-16] MEDS: METOPROLOL SUCCINATE 50 MG TABER PO SCH (08:45)
[2017-03-16] MEDS: ASPIRIN 325 MG TAB PO SCH (08:46)
[2017-03-16] MEDS: PIOGLITAZONE 30 MG TAB PO SCH (08:46)
[2017-03-16] MEDS: metFORMIN 850 MG TAB PO SCH (08:46)
--- NOTE | 2017-03-16 08:55 | NUR ---
ADMINISTERED SCHEDULED MEDS. PT'S BP WAS 163/66. ADMINISTERED HTN MEDS. PT TOLERATED WELL. PT GOT UP TO USE BSC. GOT UP WITH STANDBY ASSIST, STEADY GAIT. NO SIGNS OF DISTRESS. BED IN LOW POSITION, WHEELS LOCKED, CALL LIGHT WITHIN REACH. WILL CONTINUE TO MONITOR.
[2017-03-16] MEDS ORDERED: guaiFENesin 600 MG TABER PO SCH (09:00)
[2017-03-16] MEDS ORDERED: amLODIPine 5 MG TAB PO SCH (09:00)
--- NOTE | 2017-03-16 10:00 | NUR ---
PUT GOT UP OUT OF BED TO USE BSC. UP WITH STANDBY ASSIST. PT VOIDED. NO SIGNS OF DISTRESS WILL CONTINUE TO MONITOR.
[2017-03-16 12:00] VITALS: BP 114/76
--- NOTE | 2017-03-16 12:15 | NUR ---
PT DAUGHTER AT BEDSIDE. DR. ARRIOLA AND DR. BERMEO AT BEDSIDE. PT REPORTED COUGH AND SOB. REPOSITIONED PT TO SITTING UP IN BED. CHECKED VS: BP 114/76 HR 100, RR 18, O2 SAT 94, TEMP 98.6. DR. TOMPKINS PUT IN ORDERS FOR TX.
[2017-03-16] MEDS ORDERED: EPINEPHrine PFS 0.1 MG/ML SYR IVP ONE (12:35)
[2017-03-16] MEDS ORDERED: CODE BLUE PARTICIPANT 1 EA MISC MC ONE (12:35)
--- NOTE | 2017-03-16 12:35 | NUR ---
CODE BLUE STARTED. PT WAS SITTING UP IN BED STARTED COUGHING BLOOD AND THEN BECAME UNRESPONSIVE. NO PALPABLE PULSE. CHEST COMPRESSIONS STARTED. CODE TEAM ARRIVED TO ROOM. PT'S DAUGHTERS AT BEDSIDE.
[2017-03-16] MEDS ORDERED: ALBUTEROL 0.083% 2.5 MG/3 ML NEBU INH SCH (13:00)
--- NOTE | 2017-03-16 14:03 | NUR ---
CALLED [facility] AND REPORTED PT . RECEIVED REFERRAL #[id number]. LEFT CALL BACK NUMBER.
--- NOTE | 2017-03-16 19:47 | NUR ---
MARGARETH TAPIA CAME TO HANSARD REPORTER PT. PT'S FAMILY AT BEDSIDE. DR. GARNETT CAME IN TO SPEAK WITH FAMILY. PAPERWORK SIGNED. PERSONAL BELONGINGS SENT WITH PT'S FAMILY.
== END 2017-03-16 19:53 | disposition expired | DRG 73 ==
LOC: MED 06:30 → MTU 11:22
PROVIDERS: ADMIT Family Medicine Sports Medicine; ATTEND Family Medicine Sports Medicine
PROC: 5A12012 Performance of Cardiac Output, Single, Manual (ICD-10-PCS; principal; 2017-03-16)
DX: G90.9 Disorder of the autonomic nervous system, unspecified (principal); N17.0 Acute kidney failure with tubular necrosis; E44.0 Moderate protein-calorie malnutrition; D68.59 Other primary thrombophilia; E11.65 Type 2 diabetes mellitus with hyperglycemia; E83.39 Other disorders of phosphorus metabolism; I46.9 Cardiac arrest, cause unspecified; E83.42 Hypomagnesemia; E78.5 Hyperlipidemia, unspecified; F03.90 Unspecified dementia, unspecified severity, without behavioral disturbance, psychotic disturbance, mood disturbance, and anxiety; R31.9 Hematuria, unspecified; E87.6 Hypokalemia; D64.9 Anemia, unspecified; E66.3 Overweight; I11.9 Hypertensive heart disease without heart failure; Z90.710 Acquired absence of both cervix and uterus; Z68.26 Body mass index [BMI] 26.0-26.9, adult; Z86.73 Personal history of transient ischemic attack (TIA), and cerebral infarction without residual deficits
CPT/HCPCS: 36415; 70450; 71010; 76770; 80048; 80053; 81001; 82140; 82948; 83036; 83605; 83735; 83880; 84100; 84436; 84439; 84443; 84479; 84484; 85025; 85610; 85730; 87040; 87081; 87086; 92610; 93005; 93880; 93925; 93970; 96360; 97110; 97116; 97140; 97530; 99285; C1758; J0171; J0360; J1644; J1815; J2001; J2405; J3475; J3480; J7030; Q0092